=== PATIENT | female | born 1970 | race Caucasian/White ===

== ENCOUNTER → 2020-02-14 | Day surgery (SDC) | payer BC ==
[2020-02-14] VITALS (8 sets, daily range): BP systolic 109–116; BP diastolic 62–79
[~2020-02-14] VITALS: Ht 157.5 cm; Wt 61.7 kg
[~2020-02-14] MED LIST: Atropine Inj 1mg/10ml Syr IVP PRN; DiphenhydrAMINE 50mg/ml Inj IVP PRN; FOSAMAX70 MG ORAL; LR 1000ml 1,000 ML IVLG SCH; LR 1000ml ONE; Labetalol 5mg/ml 20ml vial IV PRN; Lidocaine 1% MPF 10mg/ml 5ml ONE; Midazolam 2mg/2ml Inj IVP PRN; PREVACID30 M2 ORAL; SYNTHROID125 MCG ORAL; fentaNYL 100 mcg/2 mL IV PRN
--- NOTE | 2020-02-14 10:03 | Pre-Procedure Note/Attestation ---
Pre-Procedure Note/Attestation Complete Prior to Procedure Planned Procedure: not applicable Procedure Narrative: esophagogastroduodenoscopy and colonoscopy Indications for Procedure Pre-Operative Diagnosis: gerd, screening colon Attestation I attest that I discussed the nature of the procedure; its benefits; risks and complications; and alternatives (and the risks and benefits of such al ternatives), prior to the procedure, with the patient (or the patient's legal direct sales representative). I attest that, if there was a reasonable possibility of needing a blood transfusion, the patient (or the patient's legal direct sales representative) was given the [facility] standardized written summary, pursuant to the [place] Blood Safety Act ([place] Health and Safety Code # 1645, as amended). I attest that I re-evaluated the patient just prior to the surgery and that there has been no change in the patient's H&P, except as documented below: Cali Villeda MD Feb 14, 2020 10:03
--- NOTE | 2020-02-14 10:04 | Short Stay Surgery H&P ---
History of Present Illness History of Present Illness Chief Complaint gerd, screening colon HPI Rk Waddell is a 49 year old female who was admitted on for Gerd, Screening Patient History Allergies: Coded Allergies: MORPHINE (Verified Allergy, Severe, Itching, 02/14/20) Medication History Scheduled Alendronate Sodium* (Fosamax*), 70 MG ORAL ONCE A WEEK, (Reported) Lansoprazole* (Prevacid*), 40 MG ORAL DAILY, (Reported) Levothyroxine Sodium* (Synthroid*), 125 MCG ORAL DAILY, (Reported) Review of Systems Cardiovascular: Reports: no symptoms Respiratory: Reports: no symptoms Skeletal: Reports: no symptoms Gastrointestinal: Reports: no symptoms Genitourinary: Reports: no symptoms Neurologic: Reports: no symptoms Endocrine: Reports: no symptoms Physical Exam Vital Signs Last Vital Signs Date Time Temp Pulse Resp B/P (MAP) Pulse Ox O2 Delivery O2 Flow Rate FiO2 02/14/20 09:00 97.1 58 18 109/62 99 Room Air Labs Laboratory Tests Test 02/14/20 08:30 Urine HCG, Qualitative Negative (NEGATIVE) Skin: normal HENT: normal Heart: normal Lungs: normal Abdomen: normal Extremities: normal Plan Plan of Care esophagogastroduodenoscopy and colonoscopy Attestation Are the patient's medical conditions optimized for surgery? Attestation Response: yes Cali Villeda MD Feb 14, 2020 10:04
--- NOTE | 2020-02-14 10:50 | Anethesia Preoperative Eval ---
Anesthesia Pre-op PMH/ROS General Date of Evaluation: Feb 14, 2020 Time of Evaluation: 10:20 Anesthesiologist: john ASA Score: ASA 3 Mallampati Score Class I : Soft palate, uvula, fauces, pillars visible Class II: Soft palate, uvula, fauces visible Class III: Soft palate, base of uvula visible Class IV: Only hard plate visible Mallampati Classification: Class II Surgeon: joshua Diagnosis: gerd, colon screening Surgical Procedure: egd/colonoscopy Anesthesia History: none Social History: smoking - nonsmoker Family History: no anesthesia problems Allergies: Coded Allergies: MORPHINE (Verified Allergy, Severe, Itching, 02/14/20) Medications: see eMAR Patient NPO?: Yes Past Medical History Gastrointestinal/Genitourinary: Reports: GERD Neurologic/Psychiatric: Reports: depression/anxiety Endocrine: Reports: hypothyroidism Hematology/Immune: Reports: other - cancer Anesthesia Pre-op Phys. Exam Physician Exam Last Vital Signs Date Time Temp Pulse Resp B/P (MAP) Pulse Ox O2 Delivery O2 Flow Rate FiO2 02/14/20 09:00 97.1 58 18 109/62 99 Room Air Constitutional: NAD Neurologic: CN 2-12 intact Cardiovascular: RRR Respiratory: CTA Gastrointestinal: S/NT/ND Airway Exam Mallampati Score: Class II MO: limited Neck: flexible TMD: 2fb ROM: limited Anesthesia Pre-op A/P Labs Microbiology Date/Time Source Procedure Growth Status 02/11/20 09:50 Nasopharynx SARS-CoV-2 RdRp Gene Assay - Final Complete Urine Test Test 02/14/20 08:30 Urine HCG, Qualitative Negative (NEGATIVE) Studies Pre-op Studies: EKG - sinus bradycardia Risk Assessment & Plan Assessment: asa3 Plan: mac Status Change Before Surgery: No Pre-Antibiotics Drug: Catarina Perdomo MD Feb 14, 2020 10:50
--- NOTE | 2020-02-14 11:04 | Endoscopy Procedure Note ---
Endoscopy Procedure Note General Indication for Procedure: gerd, screening colon Procedures Performed: EGD, colonoscopy Operative Findings/Diagnosis: one polyp Specimen: yes Pt Tolerated Procedure Well: Yes Estimated Blood Loss: none Anesthesia Anesthesiologist: john Anesthesia: MAC Inserted Devices Implant(s) used?: No Quality Quality of Bowel Preparation: Good Did scope reach the cecum?: Yes Was there any complications?: No GI Core Measures 50 yrs or older w/o bx or poly: No 10yrs. F/U recommended: Yes If not recommended, why?: Above average risk 18 years or older w/prev. colo: No Cali Villeda MD Feb 14, 2020 11:04
--- NOTE | 2020-02-14 12:00 | Procedure Note ---
DATE OF PROCEDURE: 02/14/2020 SURGEON: Cali Villeda MD. PROCEDURE: Upper endoscopy with biopsy and colonoscopy with biopsy. ANESTHESIA: Per Dr. Marin. INSTRUMENT: Olympus adult flexible endoscope and colonoscope. INDICATION: 1. Screening colonoscopy evaluation. 2. Dysphagia and chronic GERD. REASON FOR PROCEDURE: The procedure, risks, benefits, and possible consequences, including hemorrhage, aspiration, perforation and infection, and alternative treatments, were explained to the patient/legal guardian by Dr. Cali Villeda and the patient/legal guardian understood and accepted these risks. PROCEDURE IN DETAIL: After informed consent was obtained and the patient was adequately sedated, Olympus upper endoscope was advanced from mouth into the second portion of duodenum and retroflexion was performed in the stomach. The patient had no obvious esophageal findings. GE junction was found to be about 35 centimeters from incisors. In the stomach, there were multiple polyps, most probably fundic gland polyps. Random biopsy from antrum and body was obtained to rule out H. pylori infection. At this time, the upper endoscope was retrieved and the patient was turned over for colonoscopy. First, rectal exam was performed, which was normal. Then the scope was advanced from the rectum into the cecum then subsequently terminal ileum. Quality of prep was very good. The patient had normal terminal ileum. There was one diminutive polyp in the cecum roughly measured about 3 millimeter removed with the cold biopsy forceps technique. The rest of the examination grossly looked within normal limits. Retroflexion of rectum showed evidence of few small nonbleeding internal hemorrhoids. SUMMARY OF FINDINGS: 1. Gastritis, status post biopsy. 2. Multiple gastric polyps most probably fundic gland polyps. 3. Internal hemorrhoids. 4. One colonic polyp removed see above for details. RECOMMENDATIONS: 1. Followup biopsy results and treat accordingly. 2. We recommend repeat colonoscopy in 5 years. Cali Villeda M.D. DR: Lesvia JOB#: [id number] CC:
== END | disposition home or self-care (01) ==
LOC: GAS 08:22
DX: Z12.11 Encounter for screening for malignant neoplasm of colon (principal); R13.10 Dysphagia, unspecified; K21.9 Gastro-esophageal reflux disease without esophagitis; K64.8 Other hemorrhoids; D12.0 Benign neoplasm of cecum; K29.50 Unspecified chronic gastritis without bleeding; Z88.6 Allergy status to analgesic agent; K31.7 Polyp of stomach and duodenum; Z79.899 Other long term (current) drug therapy; E03.9 Hypothyroidism, unspecified; Z85.9 Personal history of malignant neoplasm, unspecified; R00.1 Bradycardia, unspecified
CPT/HCPCS: 43239; 45380; 81025; 94003; J2704; J7120; U0002; 94150